=== PATIENT | male | born 1985 | race Caucasian/White ===

== ENCOUNTER 2021-01-20 22:55 | Emergency (ER) | payer SELFPAY ==
[2021-01-20 23:15] VITALS: BP 96/68; PULSE 82; TEMP 98; BMI 22.6
[2021-01-21] MEDS ORDERED: ACETAMINOPHEN 325 MG TABLET (FP) PO ONE (01:10)
[2021-01-21] MEDS ORDERED: POLYMYXIN B SULFATE/TMP 10 ML OPHTHALMIC SOLUTION OU SCH (06:00)
== END 2021-01-21 02:40 | disposition home or self-care (01) ==
LOC: JER 22:55
DX: S05.01XA Injury of conjunctiva and corneal abrasion without foreign body, right eye, initial encounter (principal); Y04.0XXA Assault by unarmed brawl or fight, initial encounter; Y92.9 Unspecified place or not applicable
CPT/HCPCS: 99283-25